=== PATIENT | female | born 1980 | race Caucasian/White ===

== ENCOUNTER 2020-09-30 19:27 | Emergency (ER) | payer SELFPAY ==
[2020-09-30 19:28] VITALS: BP 142/86; PULSE 78; RESP 18; TEMP 36.2; O2SAT 100; BMI 29.2
--- NOTE | 2020-09-30 19:53 | ED.VIS.GEN ---
History of Present Illness Chief Complaint: Other, Pain/Inj Informant: Patient Narrative: 1-year-old female presenting with rectal pain and known hemorrhoids. She states today they were bleeding but then stopped bleeding. They are more painful than they usually are. Has not had to have surgical incisions on these before. This is a first time it hurt so bad. She states she has not had a bowel movement today because it hurts. Past Medical History - Allergies and Home Meds Allergies/Adverse Reactions: Allergies No Known Allergies Allergy (Verified 09/30/20 19:31) Primary Care Physician: Stacy Sheikh,Out of [Primary Care Provider] - Prior records reviewed: Yes Past Medical History: - - Hepatitis C Surgical History: noncontributory Lives: Alone Smoking Status: Current every day smoker Alcohol: None Drugs: None Review of Systems General: Denies: Chills, Fever, Sweats Eyes: Denies: Visual changes - bilaterally, Diplopia ENT: Denies: Rhinorrhea, Sore throat Cardiovascular: Denies: Chest pain, Palpitations Respiratory: Denies: Dyspnea, Cough, Dyspnea on exertion Gastrointestinal: Reports: - - Hemorrhoids with rectal pain and bleeding. Denies: Abdominal pain, Nausea, Vomiting, Diarrhea, Melena Genitourinary: Denies: Dysuria, Hematuria Musculoskeletal: Denies: Myalgias, Arthralgias Skin: Denies: Rash, Abscess Physical Exam Vital Signs/Narrative: Vital Signs Temp Pulse Resp BP Pulse Ox 09/30/20 19:28 97.1 F L 78 18 142/86 H 100 General: Well nourished, Well developed, No Acute Distress Head: Normocephalic, Atraumatic Eyes: Perrl, EOMI ENT: Moist mucous membranes, No rhinorrhea Neck: Supple, Nontender Cardiovascular: Regular rate, Regular rhythm, No murmurs Respiratory: No distress, CTA bilaterally, Chest nontender Rectal: Tenderness, - - Large thrombosed appearing hemorrhoid Extremities: Nontender, No edema Skin: Normal color, No rash Neurological: Alert, Oriented x3 Psychological: Normal affect, Tearful Diagnostic/Tx/Re-eval - Medical Decision Making Patient presents with large hemorrhoid. It does appear to be thrombosed. Patient was given 6 mg of morphine. Patient's hemorrhoid was cleaned with Shur-Clens. It was then anesthetized with lidocaine 1% x 8 cc. Good anesthesia achieved. Incision was made midline and extended about 1 cm. I did attempt to remove clot from there however there is no thrombus. Gelfoam was placed over the wound and dressings applied. Patient held pressure. Patient is from out [facility] and although it works against constipation she will need pain medication. I wrote her for Percocet, magnesium citrate, Proctofoam. Patient is counseled to follow-up with her regular doctor and get scheduled for her GI doctor when she gets home. Patient amenable to this plan and discharged in stable condition. Impression: 1. Bleeding hemorrhoid ED Disposition - Plan for ED Patient: Prescriptions: Oxycodone HCl/Acetaminophen [Percocet 5/325] 1 tab PO Q6H PRN PRN 3 Days #12 tab PRN Reason: Pain Prescription Printed Hydrocortisone/Pramoxine [Proctofoam-Hc Foam] 10 gm RC 4X/DAY #7 foam Prescription Printed Referrals: [facility] Doctor,Out of [Primary Care Provider] -
[2020-09-30] MEDS: morphine 8 MG/ML Syringe 6 MG IM (20:08)
[2020-09-30] MEDS: Ondansetron ODT 4 MG Tablet PO (20:08)
[2020-09-30] MEDS: Lidocaine 1% (20 ml mdv) 20 ML Vial INFILT (20:26)
[2020-09-30] MEDS: oxyCODONE 5 MG Tablet PO (20:34)
[2020-09-30] MEDS: Magnesium Citrate 300 ML 150 ML PO (20:35)
[2020-09-30 21:06] VITALS: RESP 16
== END 2020-09-30 21:06 | disposition home or self-care (01) ==
LOC: ED 21:01
PROVIDERS: Emergency Provider Student in an Organized Health Care Education/Training Program
DX: K64.9 Unspecified hemorrhoids (principal); B18.2 Chronic viral hepatitis C; F17.200 Nicotine dependence, unspecified, uncomplicated
CPT/HCPCS: 96372; 99283